=== PATIENT | female | born 1960 | race African-American/Black ===

== ENCOUNTER 2017-09-03 22:48 | Emergency (ER) | payer MEDICARE, MEDICAID ==
[~2017-09-03] VITALS: Ht 160 cm; Wt 79.0 kg
[2017-09-04] MEDS ORDERED: IBUPROFEN 600MG TABLET PO ONE (02:00)
[2017-09-04 02:35] VITALS: BP 187/93
== END 2017-09-04 03:05 | disposition home or self-care (01) ==
LOC: ER 22:48
DX: S16.1XXA Strain of muscle, fascia and tendon at neck level, initial encounter (principal); S40.011A Contusion of right shoulder, initial encounter; V43.62XA Car passenger injured in collision with other type car in traffic accident, initial encounter; I10 Essential (primary) hypertension; Y93.89 Activity, other specified; Y92.410 Unspecified street and highway as the place of occurrence of the external cause; Z85.3 Personal history of malignant neoplasm of breast
CPT/HCPCS: 99283